=== PATIENT | female | born 1990 | race Caucasian/White ===

== ENCOUNTER 2016-10-01 23:05 | Emergency (ER) | payer MEDICAID ==
[~2016-10-01] VITALS: Ht 165.1 cm; Wt 80.6 kg
[2016-10-02] MEDS ORDERED: IBUPROFEN 600MG TABLET PO ONE (05:15)
[2016-10-02 05:25] VITALS: BP 130/85
== END 2016-10-02 05:25 | disposition home or self-care (01) ==
LOC: ER 23:05
DX: J02.0 Streptococcal pharyngitis (principal); R03.0 Elevated blood-pressure reading, without diagnosis of hypertension
CPT/HCPCS: 99282